=== PATIENT | male | born 1965 | race Caucasian/White ===

== ENCOUNTER 2017-02-25 21:04 | Emergency (ER) | payer MEDICARE ==
[~2017-02-25] VITALS: Ht 177.8 cm; Wt 110.0 kg
[~2017-02-25 21:04] MED LIST: AMLO10TA3 PO; LISI-567 PO; METO25TA6 PO; SPIR25TA PO
[2017-02-25 21:09] VITALS: BP 156/99; PULSE 78; RESP 20; O2SAT 97
--- NOTE | 2017-02-25 22:52 | ED.REPORT ---
HPI-Eye Problem Date of Service Feb 25, 2017 ED Provider: Dr. Dwight Rodriguez MD A 52 year old male with a history of congestive heart failure, hypertension and dilated cardiomyopathy presents to the ED complaining of a foreign body sensation in his left eye that began this afternoon. Patient was reportedly mowing the lawn when he suddenly felt a pain in his left eye. The patient attempted to rub the object out if his eye with little success. He also reports difficulty seeing out of the eye that has mildly improved since onset. Nursing Notes Stated Complaint: SOMETHING IN LEFT EYE Chief Complaint: Eye Nursing Notes Reviewed: Yes Allergies: Coded Allergies: Bumble Bee (Verified Allergy, Mild, Anaphylaxis, 02/25/17) Scheduled Amlodipine (Amlodipine) 10 Mg Tablet 10 MG PO DAILY Lisinopril (Lisinopril) 20 Mg Tablet 20 MG PO BID Metoprolol Tartrate (Metoprolol Tartrate) 25 Mg Tablet 25 MG PO BID Spironolactone (Aldactone) 25 Mg Tablet 25 MG PO DAILY General Time Seen by MD: 22:52 Chief Complaint Left eye affected, Foreign body sensation Hx Obtained From: Patient Arrived By: Walk-in Sudden in Onset?: Yes Onset Occurred: 1 - 4 hours ago Symptom Duration: Since onset Progression Since Onset: Unchanged Caused by: Foreign body in eye Location: : Eye left Quality: Painful Severity: Current: Moderate Severity: Maximum: Moderate Associated with: Reports: Blurred vision, Foreign body sensation Pertinent Negative: Pt denies other symptoms Recent Healthcare: No recent doctor visit, No recent hospitalization Past Medical History Past Medical History Congestive Heart Failure Hypertension Dilated cardiomyopathy Past Surgical History Interbody fusion at c5-6 Right shoulder cuff surgery 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 Physical Exam Initial Vital Signs Vital Signs (First) Date Time Temp Pulse Resp B/P Pulse Ox O2 Delivery O2 Flow Rate FiO2 02/25/17 21:09 37.1 78 20 156/99 97 Room Air Initial VS: Reviewed Neck: Supple, Non-tender, Full range of motion Extremities: Vascular intact, Neuro intact, No swelling, No tenderness Skin: Warm, Dry, No cyanosis Neurologic: Alert, Oriented, Nonfocal Psychiatric: Mood/affect normal, Behavior normal, Normal thought content Head / Eyes: Atraumatic, Normocephalic, PERRL, EOMI, Fundi NL Cornea/Anterior Chamber: Positive: Abrasion L..., Negative: Hyphema L Conjunctiva / Sclera: Positive: Chemosis L, Injected left (Minimal), Negative: Subconj hemorrhage left Periorbital: Positive: Swelling is lateral Mild elevation of the conjunctiva of the left eye General/Constitutional: Awake, Alert, No acute distress Respiratory / Chest: Atraumatic, Breath sounds NL, Breath sounds = bilat, No respiratory distress Cardiovascular: Heart rate NL, Regular rhythm, Heart sounds NL Abdomen: Atraumatic, Soft Procedures Slit Lamp Exam Left lateral aspect reveals corneal abrasions, chemosis and mildly injected conjunctiva Time: 23:04 Procedure Performed by: ED physician Which Eye: Left Dilating Agent & Anesthesia: Anesthesia: Tetracaine Eyelid / Conjunctiva / Sclera: Conjunctiva inflamed (chemosis) Cornea/Ant Chamber/Iris/Lens: Corneal abrasion, Ant chamber normal Vitreous / Retina / Optic Nerv: Ant vitreous clear, Retina normal Re-Eval/Medical Decision Med Decision/Clinical Course 52-year-old had a foreign body projected into his eye while mowing weeds. Appears in vegetative material now removed. He has chemosis on the left eye and irritation and is resolving. He has small corneal abrasion apparent on floor exam. Home with Naphcon-A and erythromycin ointment. Follow up with ophthalmology. Re-Evaluation/Progress : Time of Eval: 23:04 Patient Status: Condition improved Re-Evaluation/Progress Note: Slit lamp procedure is performed. Patient tolerates the procedure well. His symptoms have improved upon recheck. He is informed of his results and diagnosis. The patient understands and agrees with the intended treatment plan. Counseled Regarding: Diagnosis, Need for follow-up, When/why to return to ED Discharge & Departure Primary Impression: Corneal abrasion Encounter type: initial encounter Laterality: left Qualified Code: S05.02XA - Injury of conjunctiva and corneal abrasion without foreign body, left eye, initial encounter Additional Impression: Chemosis Laterality: left Qualified Code: H11.422 - Conjunctival edema, left eye Disposition: Home Discharge Condition All VS Reviewed: Yes Condition: Improved Patient Instructions: Conjunctivitis (ED), Corneal Abrasion (ED) Additional Instructions: Apply one drop of Naphcon-A up to four times daily for comfort and swelling. Apply squiggle of erythromycin ointment four times daily for four days. Return if worsening over the weekend. Follow-up with ophthalmology in the office next week unless completely well. Follow-up with your doctor in the office. We recommend the use of sunglasses or light weight eye protection when mowing. Referrals: Jocelin Solomon MD (PCP) Jonathan Marie MD (Family) [facility] Scribe Attestation Portions of this note were transcribed by Russ Peña. I, Dr. Rodriguez personally performed the history, physical exam and medical decision-making; I reviewed and confirmed the accuracy of the information in the transcribed note. copies to: Jonathan Marie MD; Jocelin Solomon MD, Christopher W MD Feb 25, 2017 22:52 RUSS PEÑA Feb 25, 2017 22:58
[2017-02-25] MEDS ORDERED: 0.9% Sodium Chloride Inhalation Solution ONE (22:56)
[2017-02-25] MEDS ORDERED: Tetracaine 0.5% 4 mL Ophthalmic Solution ONE (22:56)
[2017-02-25] MEDS ORDERED: Fluorescein 0.6 mg Ophthalmic Strip ONE (22:56)
[2017-02-25] MEDS ORDERED: Naphazoline/Pheniramine 5 mL Ophthalmic Solution LEFT_EYE PRN (23:20)
[2017-02-25] MEDS ORDERED: Erythromycin 0.5% 1 Gm Ophthalmic Ointment LEFT_EYE ONE (23:20)
[2017-02-25] MEDS ORDERED: Naphazoline/Pheniramine 5 mL Ophthalmic Solution LEFT_EYE SCH ×3 (23:30→23:45)
[2017-02-25] MEDS ORDERED: Naphazoline/Pheniramine 5 mL Ophthalmic Solution LEFT_EYE ONE (23:42)
== END 2017-02-26 00:05 | disposition home or self-care (01) ==
LOC: SED 21:04
DX: S05.02XA Injury of conjunctiva and corneal abrasion without foreign body, left eye, initial encounter (principal); H11.422 Conjunctival edema, left eye; X58.XXXA Exposure to other specified factors, initial encounter; Y93.H2 Activity, gardening and landscaping; Y92.007 Garden or yard of unspecified non-institutional (private) residence as the place of occurrence of the external cause; Y99.8 Other external cause status; I11.0 Hypertensive heart disease with heart failure; I50.9 Heart failure, unspecified; Z87.891 Personal history of nicotine dependence; Z79.899 Other long term (current) drug therapy